=== PATIENT | male | born 1960 | race Caucasian/White ===

== ENCOUNTER 2017-03-08 03:02 | Emergency (ER) | payer OTHER ==
[~2017-03-08] VITALS: Ht 172.7 cm; Wt 103.4 kg
[2017-03-08 06:29] VITALS: BP 168/89
== END 2017-03-08 06:29 | disposition other institution (70) ==
LOC: ED 03:02
DX: S59.902A Unspecified injury of left elbow, initial encounter (principal); X58.XXXA Exposure to other specified factors, initial encounter; Y93.89 Activity, other specified; Y92.89 Other specified places as the place of occurrence of the external cause; Y99.8 Other external cause status
CPT/HCPCS: J3010

== ENCOUNTER 2017-03-08 03:02 | Emergency (ER) | payer OTHER | END 2017-03-08 06:29 | disposition other institution (70) | LOC: ED 03:02 | DX: Z02.89 Encounter for other administrative examinations (principal) ==

== ENCOUNTER 2017-07-24 15:50 | Emergency (ER) | payer OTHER ==
[~2017-07-24] VITALS: Ht 177.8 cm; Wt 99.8 kg
[2017-07-24 16:16] VITALS: Ht 177.8 cm; Wt 99.8 kg
[2017-07-24 17:28] VITALS: BP 157/114
== END 2017-07-24 17:29 | disposition home or self-care (01) ==
LOC: ED 15:50
DX: S01.112A Laceration without foreign body of left eyelid and periocular area, initial encounter (principal); I10 Essential (primary) hypertension; W18.39XA Other fall on same level, initial encounter; Y93.89 Activity, other specified; Y92.89 Other specified places as the place of occurrence of the external cause; Y99.8 Other external cause status
CPT/HCPCS: 90715; J2001

== ENCOUNTER 2017-08-29 11:09 | Inpatient (IN) | payer OTHER ==
[~2017-08-29] VITALS: Ht 172.7 cm; Wt 98.7 kg
[2017-08-29 11:15] VITALS: Ht 172.7 cm; Wt 98.7 kg
[2017-08-29 12:11] LABS: BASOPHIL % 0.5 % (0-2); PLATELET COUNT 237 x10^3mcL (130-400); RED CELL DISTRIBUTION WIDTH 13.6 % (11.5-14.5)
[2017-08-29 12:21] LABS: CALCIUM 8.4 mg/dL (8.5-10.1); CARBON DIOXIDE 27.9 mmol/L (21-32); CHLORIDE SERUM 102 mmol/L (98-107); CREATININE SERUM 1.1 mg/dL (0.7-1.3); GFR1 > 60 mL/min; GLUCOSE SERUM 239 mg/dL (74-106); POTASSIUM SERUM 3.9 mmol/L (3.5-5.1); SODIUM SERUM 137 mmol/L (136-145)
[2017-08-29 12:34] LABS: ALKALINE PHOSPHATASE 55 U/L (46-116); ALT/SGPT 74 U/L (16-63); AST/SGOT 41 U/L (15-37); BILIRUBIN TOTAL 0.39 mg/dL (0.20-1.00); HDL CHOLESTEROL 46 mg/dL (40-60); LIPASE 29 IU/L (73-393); MAGNESIUM 1.9 mg/dL (1.8-2.4); T4(THYROXINE) 5.5 ug/dL (4.7-13.3); TOTAL PROTEIN, SERUM 6.9 g/dL (6.4-8.2)
[2017-08-29 12:35] LABS: ALBUMIN 3.3 g/dL (3.4-5.0); AMYLASE 20 U/L (25-115); CHOLESTEROL 128 mg/dL (<200)
[2017-08-29 12:44] LABS: microscopic required? NO
[2017-08-29 13:00] LABS: AMPHETAMINE QUAL UR POSITIVE (NEG <=1000)
[2017-08-29 13:17] LABS: urine erythrocyte NEGATIVE (NEGATIVE)
[2017-08-29 15:18] VITALS: BP 153/81
[2017-08-29 15:24] LABS: T3 TOTAL 1.28 ng/mL
[2017-08-29 15:27] LABS: PHOSPHOROUS 3.7 mg/dL (2.5-4.9)
[2017-08-29 15:31] LABS: CHOLESTEROL/HDL RATIO 2.7
[2017-08-29 15:35] LABS: FREE T4 0.89 ng/dL (0.76-1.46); FREE THYROXINE INDEX 1.8 ug/dL (1.4-4.5); T4(THYROXINE) 5.3 ug/dL (4.7-13.3)
[2017-08-29 18:32] VITALS: BP 131/95
[2017-08-29 21:09] VITALS: BP 145/101
[2017-08-29 23:41] VITALS: BP 139/93
[2017-08-30 05:35] VITALS: BP 152/102
[2017-08-30 06:29] LABS: PLATELET COUNT 253 x10^3mcL (130-400); RED CELL DISTRIBUTION WIDTH 13.5 % (11.5-14.5)
[2017-08-30 06:41] LABS: CALCIUM 8.7 mg/dL (8.5-10.1); CARBON DIOXIDE 30.5 mmol/L (21-32); CHLORIDE SERUM 101 mmol/L (98-107); CREATININE SERUM 1.1 mg/dL (0.7-1.3); GFR1 > 60 mL/min; GLUCOSE SERUM 225 mg/dL (74-106); POTASSIUM SERUM 4.4 mmol/L (3.5-5.1); SODIUM SERUM 137 mmol/L (136-145)
[2017-08-30 06:54] LABS: BASOPHIL % 0 % (0-2)
[2017-08-30 09:13] VITALS: BP 144/102
[2017-08-30 13:55] VITALS: BP 142/105
[2017-08-30 17:30] VITALS: BP 140/104
[2017-08-30 21:40] VITALS: BP 119/97
[2017-08-31 06:18] LABS: CALCIUM 8.9 mg/dL (8.5-10.1); CARBON DIOXIDE 28.8 mmol/L (21-32); CHLORIDE SERUM 98 mmol/L (98-107); CREATININE SERUM 1.2 mg/dL (0.7-1.3); GFR1 > 60 mL/min; GLUCOSE SERUM 229 mg/dL (74-106); POTASSIUM SERUM 5.1 mmol/L (3.5-5.1); SODIUM SERUM 133 mmol/L (136-145)
[2017-08-31 06:36] VITALS: BP 115/89
[2017-08-31 08:08] LABS: BASOPHIL % 0.3 % (0-2); PLATELET COUNT 258 x10^3mcL (130-400); RED CELL DISTRIBUTION WIDTH 13.5 % (11.5-14.5)
[2017-08-31 09:01] VITALS: BP 153/87
[2017-08-31 09:35] VITALS: BP 153/87
[2017-08-31] MEDS ORDERED: NIFEDIPINE30 MG PO (11:52)
[2017-08-31] MEDS ORDERED: LASIX40 MG PO (11:52)
[2017-08-31] MEDS ORDERED: LISINOPRIL40 MG PO (11:52)
[2017-08-31] MEDS ORDERED: GLU500 PO (11:55)
[2017-08-31] MEDS ORDERED: METOPROLOL SUCC50 M2 PO (11:55)
[2017-08-31] MEDS ORDERED: LAC PO (11:56)
[2017-08-31] MEDS ORDERED: LEVAQUIN750 MG PO (11:56)
[2017-08-31] MEDS ORDERED: ATORVASTATIN CA10 M1 PO (11:57)
== END 2017-08-31 13:00 | disposition home or self-care (01) | DRG 194 ==
LOC: ED 11:09 → DU 13:32
PROVIDERS: Emergency Medicine; Family Medicine; Family Medicine Sports Medicine
DX: I11.0 Hypertensive heart disease with heart failure (principal); J96.01 Acute respiratory failure with hypoxia; N17.0 Acute kidney failure with tubular necrosis; F15.20 Other stimulant dependence, uncomplicated; E11.65 Type 2 diabetes mellitus with hyperglycemia; E44.1 Mild protein-calorie malnutrition; I48.91 Unspecified atrial fibrillation; J44.9 Chronic obstructive pulmonary disease, unspecified; E78.00 Pure hypercholesterolemia, unspecified; Z87.891 Personal history of nicotine dependence; E66.9 Obesity, unspecified; Z68.34 Body mass index [BMI] 34.0-34.9, adult; B19.20 Unspecified viral hepatitis C without hepatic coma; I50.43 Acute on chronic combined systolic (congestive) and diastolic (congestive) heart failure
CPT/HCPCS: 36600; 82962; 83880; 84439; 94150; 99406; J1940; J1956; J2920; J3490; J7030; J7620; Q0092

== ENCOUNTER 2017-09-11 08:16 | Inpatient (IN) | payer OTHER ==
[~2017-09-11] VITALS: Ht 172.7 cm; Wt 98.1 kg
[~2017-09-11 08:16] MED LIST: ATORVASTATIN CA10 M1 PO; GLU500 PO; LAC PO; LASIX40 MG PO; LEVAQUIN750 MG PO; LISINOPRIL40 MG PO; METOPROLOL SUCC50 M2 PO; NIFEDIPINE30 MG PO
[2017-09-11 09:05] LABS: BASOPHIL % 0.4 % (0-2); PLATELET COUNT 226 x10^3mcL (130-400); RED CELL DISTRIBUTION WIDTH 13.4 % (11.5-14.5)
[2017-09-11 09:07] LABS: CALCIUM 8.1 mg/dL (8.5-10.1); CARBON DIOXIDE 26.3 mmol/L (21-32); CHLORIDE SERUM 105 mmol/L (98-107); CREATININE SERUM 1.2 mg/dL (0.7-1.3); GFR1 > 60 mL/min; GLUCOSE SERUM 221 mg/dL (74-106); POTASSIUM SERUM 4.1 mmol/L (3.5-5.1); SODIUM SERUM 137 mmol/L (136-145)
[2017-09-11 09:10] LABS: ALKALINE PHOSPHATASE 56 U/L (46-116); ALT/SGPT 68 U/L (16-63); AST/SGOT 30 U/L (15-37); BILIRUBIN TOTAL 0.3 mg/dL (0.20-1.00); TOTAL PROTEIN, SERUM 6.8 g/dL (6.4-8.2)
[2017-09-11 09:11] LABS: ALBUMIN 3.2 g/dL (3.4-5.0)
[2017-09-11 11:33] VITALS: BP 136/90
[2017-09-11 12:33] VITALS: BP 136/90
[2017-09-11 12:35] LABS: MAGNESIUM 1.8 mg/dL (1.8-2.4); PHOSPHOROUS 4.2 mg/dL (2.5-4.9)
[2017-09-11 12:39] VITALS: BP 142/95
[2017-09-11 12:43] LABS: CHOLESTEROL/HDL RATIO 2.3; FREE T4 1.01 ng/dL (0.76-1.46); FREE THYROXINE INDEX 2.1 ug/dL (1.4-4.5); T4(THYROXINE) 5.9 ug/dL (4.7-13.3)
[2017-09-11 12:53] LABS: T3 TOTAL 0.92 ng/mL
[2017-09-11 13:20] LABS: microscopic required? NO
[2017-09-11 13:35] LABS: UA SPECIFIC GRAVITY 1.025 (1.005-1.035); urine erythrocyte NEGATIVE (NEGATIVE)
[2017-09-11 13:44] LABS: AMPHETAMINE QUAL UR POSITIVE (NEG <=1000)
[2017-09-11 16:53] VITALS: BP 152/109
[2017-09-11 18:09] VITALS: BP 145/97
[2017-09-11 21:04] VITALS: BP 151/88
[2017-09-12 05:47] VITALS: BP 144/111
[2017-09-12 06:26] VITALS: BP 133/96
[2017-09-12 07:22] LABS: BASOPHIL % 0.3 % (0-2); PLATELET COUNT 232 x10^3mcL (130-400); RED CELL DISTRIBUTION WIDTH 13.2 % (11.5-14.5)
[2017-09-12 07:31] LABS: CALCIUM 8.9 mg/dL (8.5-10.1); CARBON DIOXIDE 27.8 mmol/L (21-32); CHLORIDE SERUM 102 mmol/L (98-107); CREATININE SERUM 1.2 mg/dL (0.7-1.3); GFR1 > 60 mL/min; GLUCOSE SERUM 158 mg/dL (74-106); POTASSIUM SERUM 3.8 mmol/L (3.5-5.1); SODIUM SERUM 138 mmol/L (136-145)
[2017-09-12 09:43] VITALS: BP 154/82
[2017-09-12 14:57] VITALS: BP 140/77
[2017-09-12 17:57] VITALS: BP 109/83
[2017-09-12 20:36] VITALS: BP 119/79
[2017-09-13 05:47] VITALS: BP 112/48
[2017-09-13 05:58] LABS: BASOPHIL % 0.3 % (0-2); PLATELET COUNT 249 x10^3mcL (130-400); RED CELL DISTRIBUTION WIDTH 13.5 % (11.5-14.5)
[2017-09-13 06:03] LABS: CALCIUM 9.3 mg/dL (8.5-10.1); CARBON DIOXIDE 31.4 mmol/L (21-32); CHLORIDE SERUM 101 mmol/L (98-107); CREATININE SERUM 1.3 mg/dL (0.7-1.3); GFR1 > 60 mL/min; GLUCOSE SERUM 131 mg/dL (74-106); MAGNESIUM 1.9 mg/dL (1.8-2.4); PHOSPHOROUS 6.4 mg/dL (2.5-4.9); POTASSIUM SERUM 4.3 mmol/L (3.5-5.1); SODIUM SERUM 140 mmol/L (136-145)
[2017-09-13 08:03] VITALS: Ht 172.7 cm; Wt 98.1 kg
[2017-09-13 08:57] VITALS: BP 106/81
[2017-09-13] MEDS ORDERED: XARELTO20 M1 PO (12:20)
[2017-09-13 13:22] VITALS: BP 114/75
[2017-09-13 14:40] VITALS: BP 120/80
[2017-09-13 21:25] VITALS: BP 104/70
[2017-09-14 06:18] VITALS: BP 118/94
[2017-09-14 06:35] LABS: BASOPHIL % 0.3 % (0-2); PLATELET COUNT 248 x10^3mcL (130-400); RED CELL DISTRIBUTION WIDTH 13.1 % (11.5-14.5)
[2017-09-14 06:52] LABS: CALCIUM 8.8 mg/dL (8.5-10.1); CARBON DIOXIDE 29.8 mmol/L (21-32); CREATININE SERUM 1.5 mg/dL (0.7-1.3); POTASSIUM SERUM 4.1 mmol/L (3.5-5.1)
[2017-09-14 08:16] VITALS: BP 112/79
[2017-09-14 12:22] VITALS: BP 106/71
[2017-09-14 17:01] VITALS: BP 110/67
[2017-09-14 20:36] VITALS: BP 107/79
[2017-09-15 05:50] VITALS: BP 115/86
[2017-09-15 06:03] LABS: BASOPHIL % 0.4 % (0-2); PLATELET COUNT 254 x10^3mcL (130-400); RED CELL DISTRIBUTION WIDTH 13.2 % (11.5-14.5)
[2017-09-15 06:16] LABS: CALCIUM 8.7 mg/dL (8.5-10.1); CARBON DIOXIDE 30.2 mmol/L (21-32); CREATININE SERUM 1.4 mg/dL (0.7-1.3); POTASSIUM SERUM 4.4 mmol/L (3.5-5.1)
[2017-09-15 08:00] VITALS: BP 110/78
[2017-09-15] MEDS ORDERED: DILTIAZEM30 M1 PO ×2 (09:31→11:36)
[2017-09-15] MEDS ORDERED: ECO81 PO (09:31)
[2017-09-15] MEDS ORDERED: LAC PO (09:32)
[2017-09-15] MEDS ORDERED: HIBICLENS118 ML TOP (09:33)
[2017-09-15] MEDS ORDERED: BACO TOP (09:33)
[2017-09-15] MEDS ORDERED: AZITHROMYCIN250 M1 PO (09:34)
[2017-09-15] MEDS ORDERED: METOPROLOL SUCC50 M2 PO (09:37)
[2017-09-15 12:05] VITALS: BP 112/72
[2017-09-15 12:33] VITALS: BP 112/72
== END 2017-09-15 13:25 | disposition home or self-care (01) | DRG 139 ==
LOC: ED 08:16 → DU 10:35
PROVIDERS: Emergency Medicine; Family Medicine
DX: J18.9 Pneumonia, unspecified organism (principal); E44.0 Moderate protein-calorie malnutrition; J44.0 Chronic obstructive pulmonary disease with (acute) lower respiratory infection; I11.0 Hypertensive heart disease with heart failure; I50.9 Heart failure, unspecified; K76.0 Fatty (change of) liver, not elsewhere classified; I48.91 Unspecified atrial fibrillation; E11.65 Type 2 diabetes mellitus with hyperglycemia; E78.00 Pure hypercholesterolemia, unspecified; E66.9 Obesity, unspecified; B19.20 Unspecified viral hepatitis C without hepatic coma; F15.10 Other stimulant abuse, uncomplicated; M94.0 Chondrocostal junction syndrome [Tietze]; K80.20 Calculus of gallbladder without cholecystitis without obstruction; E78.5 Hyperlipidemia, unspecified; Z79.01 Long term (current) use of anticoagulants; Z86.718 Personal history of other venous thrombosis and embolism; Z79.899 Other long term (current) drug therapy; Z79.84 Long term (current) use of oral hypoglycemic drugs; Z56.0 Unemployment, unspecified; Z68.32 Body mass index [BMI] 32.0-32.9, adult; Z91.14 Patient's other noncompliance with medication regimen; Z23 Encounter for immunization
CPT/HCPCS: 82962; 83880; 84439; 90732; 94150; G0480; J1160; J1940; J2543; J3490; J7030; J7620; Q0092

== ENCOUNTER 2017-10-11 14:52 | Emergency (ER) | payer OTHER ==
[~2017-10-11] VITALS: Ht 172.7 cm; Wt 97.1 kg
[~2017-10-11 14:52] MED LIST changes: +AZITHROMYCIN250 M1 PO; +BACO TOP; +DILTIAZEM30 M1 PO; +ECO81 PO; +HIBICLENS118 ML TOP; +XARELTO20 M1 PO
[2017-10-11 14:58] VITALS: Ht 172.7 cm; Wt 97.1 kg
[2017-10-11 15:33] LABS: microscopic required? NO
[2017-10-11 16:00] LABS: CALCIUM 8.9 mg/dL (8.5-10.1); CARBON DIOXIDE 21.3 mmol/L (21-32); CHLORIDE SERUM 102 mmol/L (98-107); CREATININE SERUM 1.3 mg/dL (0.7-1.3); GFR1 > 60 mL/min; GLUCOSE SERUM 285 mg/dL (74-106); POTASSIUM SERUM 3.7 mmol/L (3.5-5.1); SODIUM SERUM 136 mmol/L (136-145)
[2017-10-11 16:04] LABS: ALBUMIN 3.5 g/dL (3.4-5.0); ALKALINE PHOSPHATASE 62 U/L (46-116); ALT/SGPT 26 U/L (16-63); AST/SGOT 22 U/L (15-37); BILIRUBIN TOTAL 0.8 mg/dL (0.20-1.00); HDL CHOLESTEROL 42 mg/dL (40-60); LIPASE 27 IU/L (73-393); TOTAL PROTEIN, SERUM 7.2 g/dL (6.4-8.2); TRIGLYCERIDES 78 mg/dL (<150)
[2017-10-11 16:09] LABS: CHOLESTEROL 97 mg/dL (<200); CHOLESTEROL/HDL RATIO 2.3
[2017-10-11 16:12] LABS: BASOPHIL % 0.6 % (0-2); PLATELET COUNT 204 x10^3mcL (130-400); RED CELL DISTRIBUTION WIDTH 13.1 % (11.5-14.5)
[2017-10-11 16:15] LABS: UA SPECIFIC GRAVITY <=1.005 (1.005-1.035); urine erythrocyte NEGATIVE (NEGATIVE)
[2017-10-11 16:28] LABS: AMPHETAMINE QUAL UR POSITIVE (NEG <=1000)
[2017-10-11 16:35] LABS: T3 TOTAL 1.11 ng/mL
[2017-10-11 16:36] LABS: FREE T4 1.14 ng/dL (0.76-1.46); FREE THYROXINE INDEX 2.1 ug/dL (1.4-4.5); T4(THYROXINE) 5.8 ug/dL (4.7-13.3)
[2017-10-12 08:34] VITALS: BP 144/56
== END 2017-10-12 08:40 | disposition home or self-care (01) ==
LOC: ED 14:52
PROVIDERS: Specialist
DX: I48.91 Unspecified atrial fibrillation (principal); I21.4 Non-ST elevation (NSTEMI) myocardial infarction; F15.10 Other stimulant abuse, uncomplicated; F17.210 Nicotine dependence, cigarettes, uncomplicated; J44.9 Chronic obstructive pulmonary disease, unspecified; I11.9 Hypertensive heart disease without heart failure; I50.9 Heart failure, unspecified; E78.00 Pure hypercholesterolemia, unspecified
CPT/HCPCS: 83880; 84439; J3490; J7030; Q0092; Q9967

== ENCOUNTER 2017-10-13 08:54 | Inpatient (IN) | payer OTHER ==
[~2017-10-13] VITALS: Ht 172.7 cm; Wt 92.1 kg
[2017-10-13 09:44] LABS: CARBON DIOXIDE 24.8 mmol/L (21-32); CHLORIDE SERUM 113 mmol/L (98-107); CREATININE SERUM 1.3 mg/dL (0.7-1.3); GFR1 > 60 mL/min; GLUCOSE SERUM 192 mg/dL (74-106); POTASSIUM SERUM 3.6 mmol/L (3.5-5.1); SODIUM SERUM 140 mmol/L (136-145)
[2017-10-13 09:49] LABS: ALKALINE PHOSPHATASE 61 U/L (46-116); ALT/SGPT 24 U/L (16-63); AST/SGOT 20 U/L (15-37); BILIRUBIN TOTAL 0.4 mg/dL (0.20-1.00); TOTAL PROTEIN, SERUM 6.6 g/dL (6.4-8.2)
[2017-10-13 09:54] LABS: ALBUMIN 3.1 g/dL (3.4-5.0)
[2017-10-13 09:57] LABS: BASOPHIL % 0.2 % (0-2); PLATELET COUNT 209 x10^3mcL (130-400); RED CELL DISTRIBUTION WIDTH 13.3 % (11.5-14.5)
[2017-10-13 10:30] LABS: CHOLESTEROL/HDL RATIO 2.4; MAGNESIUM 1.8 mg/dL (1.8-2.4); PHOSPHOROUS 4.7 mg/dL (2.5-4.9)
[2017-10-13 10:32] LABS: T3 TOTAL 1.01 ng/mL
[2017-10-13 10:36] LABS: FREE THYROXINE INDEX 2.1 ug/dL (1.4-4.5); T4(THYROXINE) 5.8 ug/dL (4.7-13.3)
[2017-10-13 12:12] VITALS: BP 120/80
[2017-10-13 14:46] LABS: microscopic required? NO
[2017-10-13 14:57] LABS: UA SPECIFIC GRAVITY >=1.030 (1.005-1.035); urine erythrocyte NEGATIVE (NEGATIVE)
[2017-10-13 15:06] LABS: AMPHETAMINE QUAL UR POSITIVE (NEG <=1000)
[2017-10-13 20:38] VITALS: BP 130/92
[2017-10-14] VITALS (11 sets, daily range): BP systolic 106–135; BP diastolic 62–97; Ht 172.7 cm; Wt 92.1 kg
[2017-10-14 06:35] LABS: BASOPHIL % 0.5 % (0-2); PLATELET COUNT 216 x10^3mcL (130-400); RED CELL DISTRIBUTION WIDTH 13.5 % (11.5-14.5)
[2017-10-14 06:45] LABS: CALCIUM 8.3 mg/dL (8.5-10.1); CARBON DIOXIDE 25.6 mmol/L (21-32); CHLORIDE SERUM 108 mmol/L (98-107); CREATININE SERUM 1.2 mg/dL (0.7-1.3); GFR1 > 60 mL/min; GLUCOSE SERUM 168 mg/dL (74-106); PHOSPHOROUS 3.6 mg/dL (2.5-4.9); POTASSIUM SERUM 3.7 mmol/L (3.5-5.1); SODIUM SERUM 143 mmol/L (136-145)
[2017-10-14 17:26] LABS: APPEARANCE FLUID HAZY; COLOR FLUID YELLOW; RBC FLUID 1285 /cumm; SOURCE FLUID THORACENTESIS; WBC FLUID 2385 /cumm
[2017-10-14 17:27] LABS: LYMPHOCYTE FLUID 70 %
[2017-10-15 05:21] VITALS: BP 121/88
[2017-10-15 06:39] LABS: CALCIUM 8.3 mg/dL (8.5-10.1); CARBON DIOXIDE 26.5 mmol/L (21-32); CREATININE SERUM 1.4 mg/dL (0.7-1.3); MAGNESIUM 1.9 mg/dL (1.8-2.4); PHOSPHOROUS 4.4 mg/dL (2.5-4.9); POTASSIUM SERUM 3.7 mmol/L (3.5-5.1)
[2017-10-15 06:45] LABS: BASOPHIL % 0.5 % (0-2); PLATELET COUNT 222 x10^3mcL (130-400); RED CELL DISTRIBUTION WIDTH 13.3 % (11.5-14.5)
[2017-10-15 09:27] VITALS: BP 142/79
[2017-10-15 12:22] VITALS: BP 98/73
[2017-10-15 17:17] VITALS: BP 112/69
[2017-10-15 20:23] VITALS: BP 134/99
[2017-10-16 00:45] VITALS: BP 111/69
[2017-10-16 05:27] VITALS: BP 109/77
[2017-10-16 06:40] LABS: BASOPHIL % 0.4 % (0-2); PLATELET COUNT 230 x10^3mcL (130-400); RED CELL DISTRIBUTION WIDTH 13.6 % (11.5-14.5)
[2017-10-16 06:57] LABS: CALCIUM 8.8 mg/dL (8.5-10.1); CARBON DIOXIDE 27.5 mmol/L (21-32); CHLORIDE SERUM 104 mmol/L (98-107); CREATININE SERUM 1.3 mg/dL (0.7-1.3); GFR1 > 60 mL/min; GLUCOSE SERUM 123 mg/dL (74-106); MAGNESIUM 1.9 mg/dL (1.8-2.4); PHOSPHOROUS 4.7 mg/dL (2.5-4.9); POTASSIUM SERUM 4.1 mmol/L (3.5-5.1); SODIUM SERUM 140 mmol/L (136-145)
[2017-10-16] MEDS ORDERED: ATORVASTATIN CA40 M1 PO (09:21)
[2017-10-16 09:22] VITALS: BP 113/61
[2017-10-16] MEDS ORDERED: TOP50 PO (09:22)
[2017-10-16] MEDS ORDERED: NOVAPLUS F0.05 MG/Ac (09:25)
[2017-10-16] MEDS ORDERED: SIMETHICONE80 MG CH (09:26)
[2017-10-16] MEDS ORDERED: LAC PO (09:26)
[2017-10-16] MEDS ORDERED: LEVAQUIN750 MG PO (09:28)
[2017-10-16] MEDS ORDERED: HUMULIN R100 U/1 M1 SC (09:29)
[2017-10-16 09:43] VITALS: BP 113/61
[2017-10-16] MEDS ORDERED: ALDACTONE25 MG PO (11:06)
== END 2017-10-16 13:42 | disposition home or self-care (01) | DRG 190 ==
LOC: ED 08:54 → DU 09:35 → EDBEDREQ 09:36 → DU 11:40
PROVIDERS: Emergency Medicine; Family Medicine
PROC: 0W9B3ZZ Drainage of Left Pleural Cavity, Percutaneous Approach (ICD-10-PCS; principal; 2017-10-14)
DX: I21.4 Non-ST elevation (NSTEMI) myocardial infarction (principal); J96.00 Acute respiratory failure, unspecified whether with hypoxia or hypercapnia; N17.0 Acute kidney failure with tubular necrosis; J69.0 Pneumonitis due to inhalation of food and vomit; I50.43 Acute on chronic combined systolic (congestive) and diastolic (congestive) heart failure; E44.0 Moderate protein-calorie malnutrition; K80.00 Calculus of gallbladder with acute cholecystitis without obstruction; I48.91 Unspecified atrial fibrillation; J90 Pleural effusion, not elsewhere classified; E11.65 Type 2 diabetes mellitus with hyperglycemia; I11.0 Hypertensive heart disease with heart failure; F15.10 Other stimulant abuse, uncomplicated; F17.210 Nicotine dependence, cigarettes, uncomplicated; J44.9 Chronic obstructive pulmonary disease, unspecified; E78.00 Pure hypercholesterolemia, unspecified; E66.9 Obesity, unspecified; B19.20 Unspecified viral hepatitis C without hepatic coma; Z87.01 Personal history of pneumonia (recurrent); Z79.84 Long term (current) use of oral hypoglycemic drugs; Z79.82 Long term (current) use of aspirin; Z91.14 Patient's other noncompliance with medication regimen; Z68.32 Body mass index [BMI] 32.0-32.9, adult; Z79.899 Other long term (current) drug therapy; Z59.0 Homelessness
CPT/HCPCS: 32555; 36600; 82962; 83880; 84439; C1729; J0696; J1940; J2001; J2543; J3475; J3490; J7030; Q0092